=== PATIENT | male | born 1970 | race Two or more races ===

== ENCOUNTER → 2017-06-09 | Outpatient (CLI) | payer MEDICAID | LOC: FIMAGING 12:55 | PROVIDERS: ATTEND Family Medicine | DX: M54.2 Cervicalgia (principal); M50.30 Other cervical disc degeneration, unspecified cervical region ==

== ENCOUNTER → 2017-11-09 | Outpatient (CLI) | payer MEDICAID | LOC: FIMAGING 10:56 | PROVIDERS: ATTEND Family Medicine | DX: R20.2 Paresthesia of skin (principal); M65.841 Other synovitis and tenosynovitis, right hand; M65.842 Other synovitis and tenosynovitis, left hand ==